=== PATIENT | male | born 2000 | race Hispanic/Latino ===

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

== ENCOUNTER 2023-06-19 20:43 | Emergency (ER) | payer BC, MEDICAID ==
[~2023-06-19] VITALS: Ht 170.2 cm; Wt 77.1 kg
[2023-06-19 23:34] LABS: SARS-CoV-2, RNA, NAAT NEGATIVE SARS CoV-2 (NEGATIVE)
[2023-06-19 23:40] LABS: INFLUENZA TYPE A Negative For Type A (NEGATIVE); INFLUENZA TYPE B Negative For Type B (NEGATIVE)
[2023-06-20] MEDS ORDERED: CETIRIZINE HCL 5 MG TABLET PO SCH (00:30)
[2023-06-20] MEDS ORDERED: ALBUTEROL 0.083% 2.5 MG/3 ML INH IH ONE (00:30)
[2023-06-20 00:31] VITALS: PULSE 81; RESP 19
[2023-06-20] MEDS ORDERED: ALBUHFA IH (00:41)
[2023-06-20] MEDS ORDERED: FLUT16H NASAL (00:41)
[2023-06-20] MEDS ORDERED: CETI10CA5 PO (00:41)
[2023-06-20 01:00] VITALS: BP 132/74; PULSE 74; RESP 20; O2SAT 97
== END 2023-06-20 01:00 | disposition home or self-care (01) ==
LOC: EDH 20:43
DX: J30.9 Allergic rhinitis, unspecified (principal); Z20.822 Contact with and (suspected) exposure to COVID-19
CPT/HCPCS: 87635; 87804; 87880; 94640